=== PATIENT | female | born 1990 | race Caucasian/White ===

== ENCOUNTER → 2016-08-20 | Outpatient (REF) | payer BC, OTHER ==
[~2016-08-20] MED LIST: ACET65TA; CEFT500T; CIPR500T19; VICO5TAB
[2016-08-20 21:11] LABS: CONTROL LINE INT CTR LINE PRESENT; HIV SCRN NEGATIVE (NEGATIVE); HIV SCRN1 NEGATIVE (NEGATIVE)
== END | disposition home or self-care (01) ==
LOC: M LAB REF 16:19
PROVIDERS: ATTEND Internal Medicine
DX: N76.0 Acute vaginitis (principal)

== ENCOUNTER → 2016-09-24 | Outpatient (REF) | payer BC, OTHER | LOC: M LAB REF 12:05 | PROVIDERS: ATTEND Internal Medicine | DX: K90.41 Non-celiac gluten sensitivity (principal) ==

== ENCOUNTER 2018-02-20 08:34 | Day surgery (SDC) | payer BC ==
[2018-02-20] MEDS ORDERED: NS 1,000 ML IV (08:45)
[2018-02-20] MEDS ORDERED: LIDOCAINE 2% INJ 100 MG/5 ML SDV (FOR ANES.) As Ordered (10:52)
[2018-02-20] MEDS ORDERED: PROPOFOL 200 MG/20 ML VIAL As Ordered (10:52)
== END 2018-02-20 11:44 | disposition home or self-care (01) ==
LOC: M OPP 08:34
DX: K64.8 Other hemorrhoids (principal); K92.1 Melena; K59.00 Constipation, unspecified; G43.909 Migraine, unspecified, not intractable, without status migrainosus; Z79.3 Long term (current) use of hormonal contraceptives; Z88.8 Allergy status to other drugs, medicaments and biological substances; Z80.3 Family history of malignant neoplasm of breast; Z80.1 Family history of malignant neoplasm of trachea, bronchus and lung
CPT/HCPCS: 45378

== ENCOUNTER 2018-03-26 06:59 | Emergency (ER) | payer BC ==
[2018-03-26 07:59] LABS: KETONE, URINE AUTO RFX NEGATIVE (NEGATIVE); LEUKOCYTE ESTERASE UR AUTO RFX 3+ (NEGATIVE); MUCUS, URINE RFX SMALL (NEGATIVE); NITRITE, URINE AUTO RFX POSITIVE (NEGATIVE); RBC, URINE AUTO RFX 9 /HPF (0-3); SPECIFIC GRAVITY UR AUTO RFX 1.014 (1.002-1.035); SQUAM EPITHELIAL CELL UR AURFX 2 /HPF (0-6); WBC, URINE AUTO RFX 52 /HPF (0-3)
[2018-03-26 08:00] LABS: URINE PREG TEST NEGATIVE (NEGATIVE)
[2018-03-26 08:01] LABS: CONTROL LINE UCG INT CTR LINE PRESENT
[2018-03-26] MEDS: KETOROLAC 30 MG/ML VIAL (J1885) IV (09:36)
[2018-03-26 09:51] LABS: BASO # 0.1 10^3/uL (0.0-0.2); BASO % 0.4 % (0.0-1.0); EOS % 0.2 % (0.0-3.0); HEMATOCRIT 35.5 % (36.0-47.0); IMMATURE GRANULOCYTE % 0.3 % (0-3.0); LYMPH # 2.1 10^3/uL (1.5-6.5); LYMPH % 15.2 % (24.0-44.0); MEAN CORPUSCULAR HEMOGLOBIN 30.2 pg (27.0-33.0); MEAN CORPUSCULAR HGB CONC 33.8 g/dl (32.0-36.5); MEAN CORPUSCULAR VOLUME 89.2 fl (80.0-96.0); MONO # 0.7 10^3/uL (0.0-0.8); MONO % 5.1 % (0.0-5.0); NEUTROPHILS % 78.8 % (36.0-66.0); PLATELET COUNT, AUTOMATED 332 10^3/uL (150-450); RED BLOOD COUNT 3.98 10^6/uL (4.00-5.40); RED CELL DISTRIBUTION WIDTH 12.9 % (11.5-14.5); WHITE BLOOD COUNT 13.9 10^3/uL (4.0-10.0)
[2018-03-26 10:17] LABS: ANION GAP 9 MEQ/L (8-16); BLOOD UREA NITROGEN 10 MG/DL (7-18); CALCIUM LEVEL 9.3 MG/DL (8.5-10.1); CARBON DIOXIDE LEVEL 26 MEQ/L (21-32); CHLORIDE LEVEL 107 MEQ/L (98-107); CREATININE FOR GFR 0.65 MG/DL (0.55-1.30); GLOMERULAR FILTRATION RATE > 60.0 (>60); GLUCOSE, FASTING 90 MG/DL (70-100); SODIUM LEVEL 142 MEQ/L (136-145)
[2018-03-26] MEDS: cefTRIAXone SOD 1 GM in D5W MINI-BAG PLUS 50 ML IV (10:44)
== END 2018-03-26 12:06 | disposition home or self-care (01) ==
LOC: M ED 06:59
DX: N10 Acute pyelonephritis (principal); Z87.442 Personal history of urinary calculi; Z79.899 Other long term (current) drug therapy; Z88.1 Allergy status to other antibiotic agents; Z88.2 Allergy status to sulfonamides; Z88.5 Allergy status to narcotic agent
CPT/HCPCS: J0696

== ENCOUNTER 2019-03-03 15:11 | Outpatient (RCR) | payer BC ==
[~2019-03-03 15:11] MED LIST changes: +CYCL10TA; +KEFL500C17 PO; +MICR1TAB18 PO
== END 2019-03-04 ==
LOC: M PT 15:11
PROVIDERS: ATTEND Orthopaedic Surgery
DX: Z47.89 Encounter for other orthopedic aftercare (principal); Z98.890 Other specified postprocedural states; M25.511 Pain in right shoulder

== ENCOUNTER 2019-03-10 07:54 | Outpatient (RCR) | payer BC | END 2019-04-04 | LOC: M PT 07:54 | PROVIDERS: ATTEND Orthopaedic Surgery | DX: M25.811 Other specified joint disorders, right shoulder (principal) ==

== ENCOUNTER 2022-02-28 00:27 | Emergency (ER) | payer BC, OTHER ==
[~2022-02-28] VITALS: Ht 170.2 cm; Wt 69.5 kg
[~2022-02-28 00:27] MED LIST changes: +CYCL-707; -CYCL10TA; -MICR1TAB18 PO; +NORE1TAB94 PO
[2022-02-28] MEDS ORDERED: NS 1,000 ML IV ONE (00:50)
[2022-02-28] MEDS ORDERED: ONDANSETRON 4MG 2ML VIAL IV ONE (00:50)
[2022-02-28] MEDS ORDERED: MORPHINE 4 MG/ML 1ML VIAL/SYRINGE IV ONE ×2 (00:55→05:15)
[2022-02-28 01:09] LABS: BASO # 0.1 10^3/uL (0.0-0.2); BASO % 0.7 % (0.0-1.0); EOS # 0.1 10^3/uL (0.0-0.5); EOS % 0.6 % (0.0-3.0); HEMATOCRIT 36.4 % (36.0-47.0); HEMOGLOBIN 12.3 g/dl (12.0-15.5); LYMPH # 3.4 10^3/uL (1.5-5.0); LYMPH % 30.4 % (24.0-44.0); MEAN CORPUSCULAR HEMOGLOBIN 29.9 pg (27.0-33.0); MEAN CORPUSCULAR HGB CONC 33.8 g/dl (32.0-36.5); MEAN CORPUSCULAR VOLUME 88.6 fl (80.0-96.0); MONO # 0.7 10^3/uL (0.0-0.8); MONO % 6.7 % (2.0-8.0); NEUTROPHILS # 6.8 10^3/uL (1.5-8.5); NEUTROPHILS % 61.1 % (36.0-66.0); PLATELET COUNT, AUTOMATED 292 10^3/uL (150-450); RED BLOOD COUNT 4.11 10^6/uL (4.00-5.40); WHITE BLOOD COUNT 11.1 10^3/uL (4.0-10.0)
[2022-02-28] MEDS: MORPHINE 4 MG/ML 1ML VIAL/SYRINGE IV PRN ×2 (01:52→02:47)
[2022-02-28 02:04] LABS: ALT/SGPT 18 U/L (12-78); BLOOD UREA NITROGEN 11 MG/DL (7-18); CALCIUM LEVEL 9.3 MG/DL (8.5-10.1); CARBON DIOXIDE LEVEL 25 MEQ/L (21-32); CHLORIDE LEVEL 106 MEQ/L (98-107); CREATININE FOR GFR 0.71 MG/DL (0.55-1.30); GLOMERULAR FILTRATION RATE > 60.0 (>60); GLUCOSE, FASTING 101 MG/DL (70-100); POTASSIUM SERUM 3.9 MEQ/L (3.5-5.1); SODIUM LEVEL 137 MEQ/L (136-145)
[2022-02-28 02:05] LABS: BILIRUBIN,DIRECT 0.2 MG/DL (0.0-0.2); BILIRUBIN,TOTAL 0.3 MG/DL (0.2-1.0); HCG, SERUM QUANTITATIVE 4406 MIU/ML; LIPASE 111 U/L (73-393); TOTAL PROTEIN 7.6 GM/DL (6.4-8.2)
[2022-02-28] MEDS ORDERED: PERC5TAB12 PO (04:08)
[2022-02-28] MEDS ORDERED: ONDA4TAB6 PO (04:08)
[2022-02-28] MEDS ORDERED: OXYCODONE/APAP 5MG/325MG(HOME DOSE PACK) PO ONE (04:10)
[2022-02-28 05:52] VITALS: BP 128/78
== END 2022-02-28 05:55 | disposition home or self-care (01) ==
LOC: M ED 00:27
DX: O03.4 Incomplete spontaneous abortion without complication (principal); Z88.1 Allergy status to other antibiotic agents; Z88.2 Allergy status to sulfonamides; Z88.5 Allergy status to narcotic agent; Z3A.08 8 weeks gestation of pregnancy
CPT/HCPCS: 76801; 80048; 80076; 83690; 84702; 85025; 86850; 86870; 86900; 86901; 88305; 93041; 96361; 96374; 96375; 96376; 99285; J2270; J2405

== ENCOUNTER → 2025-02-16 | Outpatient (REF) | payer BC ==
[~2025-02-16] MED LIST changes: +ONDA-282 PO; +PERC5TAB12 PO
== END ==
LOC: M LAB REF 14:34
PROVIDERS: ATTEND Internal Medicine
DX: L03.90 Cellulitis, unspecified (principal)

== ENCOUNTER → 2025-03-02 | Outpatient (REF) | payer BC ==
[~2025-03-02] MED LIST changes: +BUPR-766 PO; +CEFD1CAP9 PO; -CYCL-707; +CYCL-707 PO; +DESV50TA3 PO; +KETO-204 PO; +LINZ72CA PO; +NORE-23 PO; -NORE1TAB94 PO
[2025-03-06 19:32] LABS: LYME TOTAL ANTIBODY CIA <= 0.90 Index (<=0.90)
== END ==
LOC: M LAB REF 13:54
PROVIDERS: ATTEND Internal Medicine
DX: N20.0 Calculus of kidney (principal); N39.0 Urinary tract infection, site not specified; Z11.59 Encounter for screening for other viral diseases

== ENCOUNTER 2025-03-03 08:56 | Emergency (ER) | payer BC ==
[~2025-03-03] VITALS: Ht 170.2 cm; Wt 72.6 kg
[~2025-03-03 08:56] MED LIST changes: -BUPR-766 PO; -CEFD1CAP9 PO; -DESV50TA3 PO; -KETO-204 PO; -LINZ72CA PO
[2025-03-03] MEDS ORDERED: DESV50TA3 PO (09:32)
[2025-03-03] MEDS ORDERED: LINZ72CA PO (09:32)
[2025-03-03] MEDS ORDERED: BUPR-766 PO (09:32)
[2025-03-03] MEDS: KETOROLAC 30 MG/ML 1 ML VIAL IV ONE (09:57)
[2025-03-03] MEDS: ONDANSETRON 4MG 2ML VIAL IV ONE (09:57)
[2025-03-03] MEDS: NS (Normal Saline) 0.9% 1,000 ML IV ONE (09:57)
[2025-03-03 10:08] LABS: BASO # 0.1 10^3/uL (0.0-0.2); BASO % 0.6 % (0.0-1.0); EOS # 0.0 10^3/uL (0.0-0.5); EOS % 0.1 % (0.0-3.0); LYMPH # 2.1 10^3/uL (1.5-5.0); LYMPH % 14.8 % (24.0-44.0); MONO # 1.0 10^3/uL (0.0-0.8); MONO % 7.2 % (2.0-8.0); NEUTROPHILS # 10.9 10^3/uL (1.5-8.5); NEUTROPHILS % 76.9 % (36.0-66.0); PLATELET COUNT, AUTOMATED 348 10^3/uL (150-450)
[2025-03-03 10:25] LABS: ALT/SGPT 19 U/L (7.0-40); AST/SGOT 18 U/L (<34); CALCIUM LEVEL 9.4 MG/DL (8.5-10.1); CARBON DIOXIDE LEVEL 26 MMOL/L (20-31); CHLORIDE LEVEL 102 MMOL/L (98-107); CREATININE FOR GFR 0.68 MG/DL (0.55-1.30); GLOMERULAR FILTRATION RATE > 90.0 (>60); POTASSIUM SERUM 4.3 MMOL/L (3.5-5.1); SODIUM LEVEL 140 MMOL/L (136-145)
[2025-03-03 10:27] LABS: KETONE, URINE AUTO RFX NEGATIVE (NEGATIVE); MUCUS, URINE RFX SMALL (NEGATIVE); RBC, URINE AUTO RFX 50 /HPF (0-3); SQUAM EPITHELIAL CELL UR AURFX 3 /HPF (0-6)
[2025-03-03 10:28] LABS: LEUKOCYTE ESTERASE UR AUTO RFX 2+ (NEGATIVE); NITRITE, URINE AUTO RFX POSITIVE (NEGATIVE); WBC, URINE AUTO RFX TNTC /HPF (0-3)
[2025-03-03 11:18] LABS: HCG, SERUM QUALITATIVE NEGATIVE (NEGATIVE)
[2025-03-03] MEDS ORDERED: ISOVUE-370 76% 100 ML VIAL As Ordered ONE (11:21)
[2025-03-03] MEDS: cefTRIAXone SOD 1 GM in DEXTROSE 5% (D5W) ADV/MINI-BAG 50 ML IV ONE (12:11)
[2025-03-03] MEDS ORDERED: CEFD1CAP9 PO (13:22)
[2025-03-03] MEDS ORDERED: KETO-204 PO (13:22)
[2025-03-03] MEDS ORDERED: HOME MED LIST COMPLETE! XX SCH (13:25)
[2025-03-03] MEDS ORDERED: ONDA-282 PO (13:26)
[2025-03-03 13:40] VITALS: BP 100/64; TEMP 98; O2SAT 97
== END 2025-03-03 13:43 | disposition home or self-care (01) ==
LOC: M ED 08:56
DX: N10 Acute pyelonephritis (principal); N39.0 Urinary tract infection, site not specified; K58.9 Irritable bowel syndrome, unspecified; Z87.442 Personal history of urinary calculi; Z79.3 Long term (current) use of hormonal contraceptives; Z79.899 Other long term (current) drug therapy; Z88.5 Allergy status to narcotic agent; Z88.2 Allergy status to sulfonamides; Z88.8 Allergy status to other drugs, medicaments and biological substances
CPT/HCPCS: 74177; 80048; 80076; 81001; 84703; 85025; 87088; 87186; 93041; 96361; 96365; 96366; 96375; 99285; J0696; J1885; J2405; Q9967